=== PATIENT | male | born 1990 | race American Indian/Alaskan Native ===

== ENCOUNTER 2020-11-03 05:43 | Emergency (ER) | payer OTHER ==
[2020-11-03 07:12] VITALS: BP 118/68
[2020-11-03] MEDS ORDERED: ACETAMINOPHEN 325 MG TAB PO ONE (07:12)
[2020-11-03] MEDS ORDERED: ONDANSETRON 4 MG ODT TAB PO ONE (07:13)
[2020-11-03] MEDS ORDERED: ONDANSETRON 4 MG/2 ML INJ IV ONE (07:31)
[2020-11-03] MEDS ORDERED: MORPHINE 4 MG/1 ML INJ IV ONE (07:31)
[2020-11-03] MEDS ORDERED: SODIUM CHLORIDE 0.9% 1000 ML 1,000 ML IV ONE (07:32)
[2020-11-03 07:46] LABS: Basophils % (Auto) 0.4 % (0.0-1.8); Eosinophils % (Auto) 0.2 % (0.0-4.3); Hematocrit 48.7 % (35.5-45.6); Hemoglobin 16.7 gm/dl (11.8-15.2); Lymphocytes # (Auto) 2.4 K/mm3 (1.2-5.4); Lymphocytes % (Auto) 21.3 % (13.4-35.0); Mean Corpuscular HGB Conc 34 % (32-34); Mean Corpuscular Volume 101 fl (84-94); Monocytes # (Auto) 0.4 K/mm3 (0.0-0.8); Monocytes % (Auto) 3.8 % (0.0-7.3); Platelet Count 297 K/mm3 (140-440); Red Blood Count 4.84 M/mm3 (3.65-5.03); Red Cell Distribution Width 12.7 % (13.2-15.2)
[2020-11-03 07:59] LABS: Alanine Aminotransferase 12 units/L (7-56); Albumin 5.2 g/dL (3.9-5); BUN/Creatinine Ratio 15; Blood Urea Nitrogen 15 mg/dL (9-20); Calcium 10.5 mg/dL (8.4-10.2); Hemolysis Index 14
--- NOTE | 2020-11-03 08:18 | Cat Scan Report ---
CT ABDOMEN AND PELVIS WITHOUT CONTRAST HISTORY: RLQ/flank pain COMPARISON: None. TECHNIQUE: Axial CT images were obtained through the abdomen and pelvis without IV contrast. Sagittal and coronal reformatted images. All CT scans at this location are performed using CT dose reduction for ALARA by means of automated exposure control. FINDINGS: CT ABDOMEN: Lung Bases: Clear. Liver: No significant abnormality. Biliary: No significant abnormality. Spleen: No significant abnormality. Unenlarged. Pancreas: No significant abnormality. Adrenals: No significant abnormality. Kidneys: Both kidneys are normal size, contour and position. There are multiple punctate calyceal sto luz in both kidneys. A 4 mm ureteral stone is identified in the mid right ureter near the level of L3 -4. There is minimal upstream right hydronephrosis. No left ureteral stones. No obvious renal lesion on noncontrast CT. Lymphatics: No lymphadenopathy. Vasculature: No significant abnormality. Bowel/Peritoneum: No significant abnormality. No free air. No free fluid. Normal appendix. CT PELVIS: : No significant abnormality. Osseous Structures: No significant abnormality. Additional Findings: None IMPRESSION: Bilateral punctate renal calyceal stones. 4 mm right ureteral stone with minimal right hydronephrosis . Signer Name: Bi Murray Jr, MD Signed: 11/03/2020 8:14 AM Workstation Name: [id number]
--- NOTE | 2020-11-03 09:19 | Emergency Department Report ---
ED General Adult HPI - General Chief complaint: Abdominal Pain Stated complaint: LOWER ABDOMEN LOWER BACK PAIN Time Seen by Provider: 11/03/20 09:05 Source: patient Mode of arrival: Ambulatory Limitations: No Limitations - History of Present Illness Initial comments: 29-year-old -Citizen Of [place] male patient presents with complaints of sudden onset of abdominal pain and mid back pain starting yesterday. Patient has a history of asthma and nephrolithiasis. He denies any dysuria/hematuria, urinary frequency, fever/chills/sweats, constipation/diarrhea/hematochezia/melena, chest pain, cough, or shortness of breath. He does admit to vomiting x1, but denies any hematemesis/coffee-ground emesis. Patient rates his pain as a 10/10 in severity, however states it has resolved with meds given here in the ED. -: Sudden Severity scale (0 -10): 9 - Related Data Previous Rx's Medication Instructions Recorded Last Taken Type Acetaminophen/Codeine [Tylenol 1 tab PO Q6H PRN #12 tab 11/03/20 Unknown Rx /Codeine # 3 tab] Ondansetron HCl [Zofran] 4 mg PO Q6H PRN #12 tablet 11/03/20 Unknown Rx Tamsulosin [Flomax] 0.4 mg PO QDAY #5 cap 11/03/20 Unknown Rx Allergies Allergy/AdvReac Type Severity Reaction Status Date / Time No Known Allergies Allergy Unverified 11/03/20 07:11 ED Review of Systems ROS: Stated complaint: LOWER ABDOMEN LOWER BACK PAIN Other details as noted in HPI Constitutional: denies: chills, diaphoresis, fever, malaise, weakness Respiratory: denies: cough, shortness of breath Cardiovascular: denies: chest pain Gastrointestinal: abdominal pain, nausea, vomiting. denies: diarrhea, constipation, hematemesis, melena, hematochezia Genitourinary: denies: dysuria, frequency, hematuria, discharge Neurological: denies: headache Hematological/Lymphatic: denies: swollen glands ED Past Medical Hx - Past Medical History Hx Asthma: Yes Additional medical history: eczema - Surgical History Past Surgical History?: No - Medications Home Medications: Home Medications Medication Instructions Recorded Confirmed Last Taken Type Acetaminophen/Codeine [Tylenol 1 tab PO Q6H PRN #12 tab 11/03/20 Unknown Rx /Codeine # 3 tab] Ondansetron HCl [Zofran] 4 mg PO Q6H PRN #12 tablet 11/03/20 Unknown Rx Tamsulosin [Flomax] 0.4 mg PO QDAY #5 cap 11/03/20 Unknown Rx ED Physical Exam - General Limitations: No Limitations General appearance: alert, in no apparent distress - Head Head exam: Present: atraumatic, normocephalic - Eye Eye exam: Present: normal appearance. Absent: scleral icterus - Neck Neck exam: Absent: tenderness - Respiratory Respiratory exam: Present: normal lung sounds bilaterally. Absent: respiratory distress - Cardiovascular Cardiovascular Exam: Present: regular rate, normal rhythm - GI/Abdominal GI/Abdominal exam: Present: soft, normal bowel sounds. Absent: distended, tenderness, guarding, rebound, rigid - Extremities Exam Extremities exam: Present: full ROM - Back Exam Back exam: Present: CVA tenderness (R). Absent: CVA tenderness (L) - Neurological Exam Neurological exam: Present: alert, oriented X3, normal gait - Psychiatric Psychiatric exam: Present: normal affect, normal mood - Skin Skin exam: Present: warm, dry, intact, normal color. Absent: rash, cyanosis, diaphoretic ED Course Vital Signs 11/03/20 11/03/20 07:08 10:32 Temperature 98 F Pulse Rate 94 H Respiratory 18 16 Rate Blood Pressure 118/68 [Right] O2 Sat by Pulse 99 Oximetry ED Medical Decision Making - Lab Data Result diagrams: 11/03/20 07:28 11/03/20 07:28 - Radiology Data Radiology results: report reviewed CT ABDOMEN AND PELVIS WITHOUT CONTRAST HISTORY: RLQ/flank pain COMPARISON: None. TECHNIQUE: Axial CT images were obtained through the abdomen and pelvis without IV contrast. Sagittal and coronal reformatted images. All CT scans at this location are pe rformed using CT dose reduction for ALARA by means of automated exposure control. FINDINGS: CT ABDOMEN: Lung Bases: Clear. Liver: No significant abnormality. Biliary: No significant abnormality. Spleen: No significant abnormality. Unenlarged. Pancreas: No significant abnormality. Adrenals: No significant abnormality. Kidneys: Both kidneys are normal size, contour and position. There are multiple punctate calyceal stones in both kidneys. A 4 mm ureteral stone is identified in the mid right ureter near the level of L3-4. There is minimal upstream right hydronephrosis. No left ureteral stones. No obvious renal lesion on noncontrast CT. Lymphatics: No lymphadenopathy. Vasculature: No significant abnormality. Bowel/Peritoneum: No significant abnormality. No free air. No free fluid. Normal appendix. CT PELVIS: : No significant abnormality. Osseous Structures: No significant abnormality. Additional Findings: None IMPRESSION: Bilateral punctate renal calyceal stones. 4 mm right ureteral stone with minimal right hydronephrosis. - Medical Decision Making 29-year-old -Citizen Of [place] male patient presents with complaints of sudden onset of abdominal pain and mid back pain starting yesterday. Patient has a history of asthma and nephrolithiasis. He denies any dysuria/hematuria, urinary frequency, fever/chills/sweats, constipation/diarrhea/hematochezia/melena, chest pain, cough, or shortness of breath. He does admit to vomiting x1, but denies any hematemesis/coffee-ground emesis. Patient rates his pain as a 10/10 in severity, however states it has resolved with meds given here in the ED. White count mildly elevated on CBC at 11.4. CMP shows mild hyperbilirubinemia. CT abdomen shows right ureteral stone with mild hydronephrosis. Kidney function is normal CMP. UA is negative for UTI. Will treat for expectorant passage of kidney stone with Flomax and pain control. Recommend patient follows up with urology in 2 to 3 days. Referral was provided. His pain remains co ntrolled and he is well-appearing. Patient is stable for discharge home. Discussed in detail signs and symptoms that should prompt immediate return to the ED with patient who states understanding. Critical care attestation.: If time is entered above; I have spent that time in minutes in the direct care of this critically ill patient, excluding procedure time. ED Disposition Clinical Impression: Right nephrolithiasis, Hyperbilirubinemia Disposition: - TO HOME OR SELFCARE Is pt being admited?: No Condition: Stable Instructions: Kidney Stones, Dietary Guidelines to Help Prevent Kidney Stones Prescriptions: Tamsulosin [Flomax] 0.4 mg PO QDAY #5 cap Acetaminophen/Codeine [Tylenol /Codeine # 3 tab] 1 tab PO Q6H PRN #12 tab PRN Reason: Pain , Severe (7-10) Ondansetron HCl [Zofran] 4 mg PO Q6H PRN #12 tablet PRN Reason: Nausea Referrals: [facility] [Provider Group] - 3-5 Days (Recheck bilirubin levels) RADHA SILVA MD [Staff Physician] - 2-3 Days (kidney stones ) Forms: Work/School Release Form(ED)
[2020-11-03] MEDS ORDERED: KETOROLAC 30 MG/1 ML INJ IV ONE (09:24)
[2020-11-03 10:36] LABS: Bilirubin,Urine NEG (Negative); Blood,Urine LG (Negative); Color,Urine Yellow (Yellow); Mucus,Urine 3+ /HPF; Urobilinogen,Urine < 2.0 mg/dL (<2.0)
[2020-11-03 10:44] LABS: RBC,Urine > 182.0 /HPF (0.0-6.0)
== END 2020-11-03 11:09 | disposition home or self-care (01) ==
LOC: ED 05:43
DX: N20.0 Calculus of kidney (principal); E80.6 Other disorders of bilirubin metabolism
CPT/HCPCS: 36415; 74176; 80053; 81001; 83690; 85025; 96361; 96374; 96375; 99284; J1885; J2270; J2405; J7030

== ENCOUNTER 2021-01-13 09:20 | Emergency (ER) | payer SELFPAY ==
[2021-01-13] MEDS ORDERED: ONDANSETRON 4 MG/2 ML INJ IV ONE (09:40)
[2021-01-13] MEDS ORDERED: KETOROLAC 30 MG/1 ML INJ IV ONE (09:40)
[2021-01-13] MEDS ORDERED: SODIUM CHLORIDE 0.9% 1000 ML 1,000 ML IV ONE (09:40)
--- NOTE | 2021-01-13 09:55 | Emergency Department Report ---
ED Abdominal Pain HPI - General Chief Complaint: Abdominal Pain Stated Complaint: ABD PAIN Time Seen by Provider: 01/13/21 09:39 Source: patient Mode of arrival: Ambulatory Limitations: No Limitations - History of Present Illness Initial Comments: This is a pleasant 30-year-old male who presents the emergency department chief complaint of right lower quadrant abdominal pain that started yesterday. He reports there is associated dull aching pain in the right testicle as well as some intermittent pain in the flank. His history of kidney stones but states this does not feel similar. He reports there is associated diarrhea loss of appetite. He otherwise denies any known past medical history, current medication use or known allergies to medications. He denies any associated fever, chills, night sweats, headache, dizziness, blurry vision, nausea, vomiting, chest pain, shortness of breath, weakness or any other associated symptoms. - Related Data Previous Rx's Medication Instructions Recorded Last Taken Type Acetaminophen/Codeine [Tylenol 1 tab PO Q6H PRN #12 tab 11/03/20 Unknown Rx /Codeine # 3 tab] Tamsulosin [Flomax] 0.4 mg PO QDAY #5 cap 11/03/20 Unknown Rx Acetaminophen with Codeine 1 each PO Q6HR #12 tablet 01/13/21 Unknown Rx [Acetaminophen-Codeine #4 TAB] Ondansetron HCl [Zofran] 4 mg PO Q6H PRN #12 tablet 01/13/21 Unknown Rx Allergies Allergy/AdvReac Type Severity Reaction Status Date / Time No Known Allergies Allergy Verified 01/13/21 09:44 ED Review of Systems ROS: Stated complaint: ABD PAIN Other details as noted in HPI Comment: All other systems reviewed and negative Constitutional: denies: chills, fever Eyes: denies: eye pain, eye discharge, vision change ENT: denies: ear pain, throat pain Respiratory: denies: cough, shortness of breath, wheezing Cardiovascular: denies: chest pain, palpitations Endocrine: no symptoms reported Gastrointestinal: as per HPI, abdominal pain, diarrhea. denies: nausea Genitourinary: testicular pain. denies: urgency, dysuria Musculoskeletal: denies: back pain, joint swelling, arthralgia Skin: denies: rash, lesions Neurological: denies: headache, weakness, paresthesias Psychiatric: denies: anxiety, depression Hematological/Lymphatic: denies: easy bleeding, easy bruising ED Past Medical Hx - Past Medical History Hx Kidney Stones: Yes Hx Asthma: Yes Additional medical history: eczema - Surgical History Past Surgical History?: No - Family History Family history: no significant - Social History Smoking Status: Never Smoker Substance Use Type: None - Medications Home Medications: Home Medications Medication Instructions Recorded Confirmed Last Taken Type Acetaminophen/Codeine [Tylenol 1 tab PO Q6H PRN #12 tab 11/03/20 Unknown Rx /Codeine # 3 tab] Tamsulosin [Flomax] 0.4 mg PO QDAY #5 cap 11/03/20 Unknown Rx Acetaminophen with Codeine 1 each PO Q6HR #12 tablet 01/13/21 Unknown Rx [Acetaminophen-Codeine #4 TAB] Ondansetron HCl [Zofran] 4 mg PO Q6H PRN #12 tablet 01/13/21 Unknown Rx ED Physical Exam - General Limitations: No Limitations General appearance: alert, in no apparent distress - Head Head exam: Present: atraumatic, normocephalic - Eye Eye exam: Present: normal appearance, PERRL, EOMI Pupils: Present: normal accommodation - ENT ENT exam: Present: normal exam, normal orophraynx, mucous membranes moist - Neck Neck exam: Present: normal inspection, full ROM. Absent: tenderness, meningismus - Respiratory Respiratory exam: Present: normal lung sounds bilaterally. Absent: respiratory distress, wheezes, rales, rhonchi, stridor - Cardiovascular Cardiovascular Exam: Present: regular rate, normal rhythm, normal heart sounds. Absent: systolic murmur, diastolic murmur, rubs, gallop - GI/Abdominal GI/Abdominal exam: Present: soft, normal bowel sounds. Absent: distended, tenderness (Negative McBurney's point tenderness, negative Johnston sign, no rebound or guarding), guarding, rebound - Rectal Rectal exam: Present: deferred - exam: Present: normal inspection, vertical testicular lie. Absent: testicular tenderness (No testicular tenderness, no epididymal tenderness, suspect small easily reducible right inguinal hernia that is indirect) External exam: Present: normal external exam. Absent: lesions - Extremities Exam Extremities exam: Present: normal inspection, full ROM, normal capillary refill. Absent: tenderness, calf tenderness - Back Exam Back exam: Present: normal inspection, full ROM. Absent: tenderness, CVA tenderness (R), CVA tenderness (L), paraspinal tenderness, vertebral tenderness - Neurological Exam Neurological exam: Present: alert, oriented X3, normal gait - Psychiatric Psychiatric exam: Present: normal affect, normal mood - Skin Skin exam: Present: warm, dry, intact, normal color. Absent: rash ED Course Vital Signs 01/13/21 09:24 Temperature 97.7 F Pulse Rate 76 Respiratory 18 Rate Blood Pressure 133/79 O2 Sat by Pulse 98 Oximetry ED Medical Decision Making - Lab Data Result diagrams: 01/13/21 09:55 01/13/21 09:40 Lab Results 01/13/21 01/13/21 01/13/21 Range/Units 09:40 09:55 12:14 WBC 8.4 (4.5-11.0) K/mm3 RBC 4.63 (3.65-5.03) M/mm3 Hgb 15.5 H (11.8-15.2) gm/dl Hct 46.5 H (35.5-45.6) % MCV 101 H (84-94) fl MCH 33 H (28-32) pg MCHC 33 (32-34) % RDW 12.5 L (13.2-15.2) % Plt Count 269 (140-440) K/mm3 Lymph % (Auto) 27.2 (13.4-35.0) % [place] % (Auto) 6.4 (0.0-7.3) % Eos % (Auto) 0.2 (0.0-4.3) % Baso % (Auto) 0.5 (0.0-1.8) % Lymph # (Auto) 2.3 (1.2-5.4) K/mm3 [place] # (Auto) 0.5 (0.0-0.8) K/mm3 Eos # (Auto) 0.0 (0.0-0.4) K/mm3 Baso # (Auto) 0.0 (0.0-0.1) K/mm3 Seg Neutrophils % 65.7 (40.0-70.0) % Seg Neutrophils # 5.5 (1.8-7.7) K/mm3 Sodium 140 (137-145) mmol/L Potassium 3.7 (3.6-5.0) mmol/L Chloride 104.2 (98-107) mmol/L Carbon Dioxide 23 (22-30) mmol/L Anion Gap 17 mmol/L BUN 16 (9-20) mg/dL Creatinine 1.2 (0.8-1.3) mg/dL Estimated GFR > 60 ml/min BUN/Creatinine Ratio 13 % Glucose 91 (75-100) mg/dL Calcium 9.7 (8.4-10.2) mg/dL Total Bilirubin 1.60 H (0.1-1.2) mg/dL AST 14 (5-40) units/L ALT 12 (7-56) units/L Alkaline Phosphatase 55 (35-129) units/L Total Protein 7.7 (6.3-8.2) g/dL Albumin 4.7 (3.9-5) g/dL Albumin/Globulin Ratio 1.6 % Urine Color Yellow (Yellow) Urine Turbidity Clear (Clear) Urine pH 5.0 (5.0-7.0) Ur Specific [place] 1.060 H (1.003-1.030) Urine Protein 30 mg/dl (Negative) mg/dL Urine Glucose (UA) Neg (Negative) mg/dL Urine Ketones 20 (Negative) mg/dL Urine Blood Lg (Negative) Urine Nitrite Neg (Negative) Urine Bilirubin Neg (Negative) Urine Urobilinogen 2.0 (<2.0) mg/dL Ur Leukocyte Esterase Neg (Negative) Urine WBC (Auto) 4.0 (0.0-6.0) /HPF Urine RBC (Auto) 30.0 (0.0-6.0) /HPF U Epithel Cells (Auto) < 1.0 (0-13.0) /HPF Urine Mucus 3+ /HPF - Radiology Data Radiology results: report reviewed CT abdomen pelvis w con INDICATION: RLQ pain, N/V, decreased appetite OMNI 300 100ML. COMPARISON: None TECHNIQUE: Abdominal and pelvic CT exam performed. All CT scans at this location are performed using CT dose reduction for ALARA by means of automated exposure control. FINDINGS: CT ABDOMEN and PELVIS: Lung Bases: No significant abnormality. Liver: No significant abnormality. Biliary: No significant abnormality. Spleen: No significant abnormality. Pancreas: No significant abnormality. Adrenals: No significant abnormality. Kidneys: Moderate right hydroureteronephrosis. Delayed right nephrogram. Punctate right lower pole and a couple of left middle pole nonobstructing stones. Lymphatics: No lymphadenopathy. Vasculature: No significant abnormality. Bowel: No significant abnormality. Normal appendix. Pelvis: 2 mm stone in the bladder. Osseous Structures: No aggressive osseous lesion. Additional Findings: None IMPRESSION: 1. Moderate right hydronephrosis with a 2 mm stone seen layering dependently in the bladder. Signer Name: Deandre Castorena MD Signed: 01/13/2021 11:46 AM Workstation Name: [id number] Transcribed By: CS Dictated By: Deandre Castorena MD Electronically Authenticated By: Deandre Castorena MD Signed Date/Time: 01/13/21 1146 - Medical Decision Making Patient's labs returned relatively normal other than mild dehydration which she was given IV fluids and antiemetics. Pain was controlled with Toradol morphine. CT confirmed a 2 mm stone that passed into the bladder. Urine showed hematuria but no other acute findings. Patient will be given pain medication and outpatient follow-up with urology. Recommend he return to the ER with any change or worsening symptoms. He verbalized understand the diagnosis, treatment plan and follow-up instructions all his questions were answered. - Differential Diagnosis nephrolithiasis, appendicitis, hernia Critical care attestation.: If time is entered above; I have spent that time in minutes in the direct care of this critically ill patient, excluding procedure time. ED Disposition Clinical Impression: Ureteral colic Disposition: 01 HOME / SELF CARE / HOMELESS Is pt being admited?: No Condition: Stable Instructions: Renal Colic, [id number], Kidney Stones, [id number] Prescriptions: Acetaminophen with Codeine [Acetaminophen-Codeine #4 TAB] 1 each PO Q6HR #12 tablet Ondansetron HCl [Zofran] 4 mg PO Q6H PRN #12 tablet PRN Reason: Nausea Referrals: MACHELLE VALENZUELA MD [Staff Physician] - 3-5 Days Forms: Work/School Release Form(ED) Time of Disposition: 12:36
[2021-01-13 10:30] LABS: Basophils % (Auto) 0.5 % (0.0-1.8); Eosinophils % (Auto) 0.2 % (0.0-4.3); Hematocrit 46.5 % (35.5-45.6); Hemoglobin 15.5 gm/dl (11.8-15.2); Lymphocytes # (Auto) 2.3 K/mm3 (1.2-5.4); Lymphocytes % (Auto) 27.2 % (13.4-35.0); Mean Corpuscular HGB Conc 33 % (32-34); Mean Corpuscular Volume 101 fl (84-94); Monocytes # (Auto) 0.5 K/mm3 (0.0-0.8); Monocytes % (Auto) 6.4 % (0.0-7.3); Platelet Count 269 K/mm3 (140-440); Red Blood Count 4.63 M/mm3 (3.65-5.03); Red Cell Distribution Width 12.5 % (13.2-15.2)
[2021-01-13 10:48] LABS: Alanine Aminotransferase 12 units/L (7-56); Albumin 4.7 g/dL (3.9-5); BUN/Creatinine Ratio 13; Blood Urea Nitrogen 16 mg/dL (9-20); Calcium 9.7 mg/dL (8.4-10.2); Hemolysis Index 28
[2021-01-13] MEDS ORDERED: MORPHINE 4 MG/1 ML INJ IV ONE (11:26)
--- NOTE | 2021-01-13 11:54 | Cat Scan Report ---
CT abdomen pelvis w con INDICATION: RLQ pain, N/V, decreased appetite OMNI 300 100ML. COMPARISON: None TECHNIQUE: Abdominal and pelvic CT exam performed. All CT scans at this location are performed using CT dose reduction for ALARA by means of automated exposure control. FINDINGS: CT ABDOMEN and PELVIS: Lung Bases: No significant abnormality. Liver: No significant abnormality. Biliary: No significant abnormality. Spleen: No significant abnormality. Pancreas: No significant abnormality. Adrenals: No significant abnormality. Kidneys: Moderate right hydroureteronephrosis. Delayed right nephrogram. Punctate right lower pole an d a couple of left middle pole nonobstructing stones. Lymphatics: No lymphadenopathy. Vasculature: No significant abnormality. Bowel: No significant abnormality. Normal appendix. Pelvis: 2 mm stone in the bladder. Osseous Structures: No aggressive osseous lesion. Additional Findings: None IMPRESSION: 1. Moderate right hydronephrosis with a 2 mm stone seen layering dependently in the bladder. Signer Name: Deandre Castorena MD Signed: 01/13/2021 11:46 AM Workstation Name: [id number]
[2021-01-13 12:22] LABS: Bilirubin,Urine NEG (Negative); Blood,Urine LG (Negative); Color,Urine Yellow (Yellow); Mucus,Urine 3+ /HPF
[2021-01-13 12:50] VITALS: BP 134/78
== END 2021-01-13 12:50 | disposition home or self-care (01) ==
LOC: ED 09:20
DX: N23 Unspecified renal colic (principal); J45.909 Unspecified asthma, uncomplicated; Z79.899 Other long term (current) drug therapy
CPT/HCPCS: 36415; 74177; 80053; 81001; 85025; 96361; 96374; 96375; 99284; J1885; J2270; J2405; J7030; Q9967